=== PATIENT | male | born 1945 | race Caucasian/White ===

== ENCOUNTER 2020-10-08 22:02 | Emergency (ER) | payer BC, MEDICARE ==
[~2020-10-08] VITALS: Ht 167.6 cm; Wt 84.1 kg
[~2020-10-08 22:02] MED LIST: ACET-2119 PO; ASPI-100 PO; METO200T49 PO
[2020-10-08 22:47] LABS: BASOPHILS # (AUTO) 0.1 X10'3 (0-0.2); BASOPHILS % (AUTO) 1.6 % (0-1); EOSINOPHILS # (AUTO) 0.1 X10'3 (0-0.9); EOSINOPHILS % (AUTO) 1.8 % (0-6); HEMATOCRIT 28.5 % (42.0-52.0); HEMOGLOBIN 9.8 g/dl (14.0-17.9); LYMPHOCYTES # (AUTO) 1.5 X10'3 (1.1-4.8); LYMPHOCYTES % (AUTO) 25.6 % (21-51); MEAN CORPUSCULAR HGB CONC 34.4 g/dL (33.0-36.5); MEAN CORPUSCULAR VOLUME 104.6 FL (78-98); MEAN PLATELET VOLUME 10.1 FL (7.4-10.4); MONOCYTES # (AUTO) 0.7 X10'3 (0-0.9); MONOCYTES % (AUTO) 11.4 % (2-12); NEUTROPHILS # (AUTO) 3.4 X10'3 (1.8-7.7); NEUTROPHILS % (AUTO) 59.6 % (42-75); PLATELET COUNT 284 X10'3 (140-440); RED BLOOD COUNT 2.72 X10'6 (4.70-6.10); RED CELL DISTRIBUTION WIDTH 17.7 % (11.5-14.5); WHITE BLOOD COUNT 5.7 X10'3 (4.5-11.0)
[2020-10-08 23:04] LABS: ALANINE AMINOTRANSFERASE 17 U/L (12-78); ALBUMIN 4.6 G/DL (3.4-5.0); ALBUMIN/GLOBULIN RATIO 1.7 (1.1-1.5); ALKALINE PHOSPHATASE 61 IU/L (46-116); ANION GAP 11 (8-16); ASPARTATE AMINO TRANSFERASE 13 U/L (10-37); BILIRUBIN,TOTAL 0.4 MG/DL (0.1-1.0); BLOOD UREA NITROGEN 19 MG/DL (7-18); BUN/CREATININE RATIO 16.7 (5.4-32.0); CALCIUM 9.2 MG/DL (8.5-10.1); CHLORIDE 108 MMOL/L (99-107); CREATININE 1.14 MG/DL (0.60-1.10); GLUCOSE 132 MG/DL (70-104); SODIUM 145 MMOL/L (135-145); TOTAL CARBON DIOXIDE 25.9 MMOL/L (24-32); TOTAL PROTEIN 7.3 G/DL (6.4-8.2); eGFR 62 ML/MIN
[2020-10-08] MEDS ORDERED: APIX5TAB3 PO (23:47)
[2020-10-09 00:06] LABS: ANISOCYTOSIS 1+; HYPOCHROMASIA 1+; PLATELET ESTIMATE NORMAL; POLYCHROMASIA FEW
[2020-10-09 00:07] LABS: ELLIPTOCYTES FEW
[2020-10-09 00:14] VITALS: BP 110/47
== END 2020-10-09 00:15 | disposition home or self-care (01) ==
LOC: ER 22:03
DX: I48.91 Unspecified atrial fibrillation (principal); I10 Essential (primary) hypertension; Z87.891 Personal history of nicotine dependence
CPT/HCPCS: 36415; 71045; 80053; 83735; 83880; 84484; 85008; 85025; 93005; 99285

== ENCOUNTER 2021-03-02 13:42 | Emergency (ER) | payer MEDICARE, OTHER ==
[~2021-03-02] VITALS: Ht 167.6 cm; Wt 84.5 kg
[~2021-03-02 13:42] MED LIST changes: +APIX5TAB3 PO
[2021-03-02] MEDS ORDERED: diltiazem-NS 100mg/100ml 100 ML IV SCH (14:00)
[2021-03-02] MEDS ORDERED: diltiazem 5mg/ml 5ml inj. IV ONE (14:00)
--- NOTE | 2021-03-02 14:00 | NUR ---
Dr. Singh at bedside. HR 130-180
[2021-03-02] MEDS ORDERED: etomidate 2mg/ml inj. IV ONE (14:05)
[2021-03-02] MEDS ORDERED: heparin 10,000 units/1 ML INJ IV ONE (14:05)
[2021-03-02] MEDS ORDERED: fentaNYL/PF 50MCG/1 ML 2ML syringe IV ONE (14:05)
[2021-03-02] MEDS ORDERED: ondansetron/PF 4mg/2ml inj IV ONE ×2 (14:05)
[2021-03-02 14:31] LABS: ALANINE AMINOTRANSFERASE 14 U/L (12-78); ALBUMIN 4.1 G/DL (3.4-5.0); ALBUMIN/GLOBULIN RATIO 1.6 (1.1-1.5); ALKALINE PHOSPHATASE 52 IU/L (46-116); ANION GAP 11 (8-16); ASPARTATE AMINO TRANSFERASE 12 U/L (10-37); BILIRUBIN,TOTAL 0.5 MG/DL (0.1-1.0); BLOOD UREA NITROGEN 18 MG/DL (7-18); BUN/CREATININE RATIO 18.6 (5.4-32.0); CALCIUM 8.5 MG/DL (8.5-10.1); CHLORIDE 107 MMOL/L (99-107); CREATININE 0.97 MG/DL (0.60-1.10); GLUCOSE 153 MG/DL (70-104); POTASSIUM 4.2 MMOL/L (3.5-5.1); SODIUM 143 MMOL/L (135-145); TOTAL CARBON DIOXIDE 25.3 MMOL/L (24-32); TOTAL PROTEIN 6.6 G/DL (6.4-8.2); eGFR 75 ML/MIN
[2021-03-02 14:32] LABS: D-DIMER 0.51 MG/L FEU (0-0.50)
[2021-03-02 14:39] LABS: EOSINOPHILS # (AUTO) 0.1 X10'3 (0-0.9); EOSINOPHILS % (AUTO) 1.6 % (0-6); HEMATOCRIT 26.2 % (42.0-52.0); HEMOGLOBIN 8.8 g/dl (14.0-17.9); LYMPHOCYTES # (AUTO) 1.1 X10'3 (1.1-4.8); LYMPHOCYTES % (AUTO) 22.1 % (21-51); MEAN CORPUSCULAR HGB CONC 33.7 g/dL (33.0-36.5); MEAN CORPUSCULAR VOLUME 106.8 FL (78-98); MEAN PLATELET VOLUME 10.8 FL (7.4-10.4); MONOCYTES # (AUTO) 0.3 X10'3 (0-0.9); MONOCYTES % (AUTO) 7.2 % (2-12); NEUTROPHILS # (AUTO) 3.3 X10'3 (1.8-7.7); NEUTROPHILS % (AUTO) 68.1 % (42-75); PLATELET COUNT 241 X10'3 (140-440); RED BLOOD COUNT 2.45 X10'6 (4.70-6.10); WHITE BLOOD COUNT 4.8 X10'3 (4.5-11.0)
[2021-03-02] MEDS ORDERED: SOTA80TA PO (14:40)
[2021-03-02] MEDS ORDERED: APIX5TAB3 PO (14:40)
[2021-03-02] MEDS ORDERED: amiodarone 150mg/dext, iso-os 100 ML IV ONE (14:50)
[2021-03-02 14:52] LABS: ANISOCYTOSIS 2+; ELLIPTOCYTES FEW; PLATELET ESTIMATE NORMAL
[2021-03-02 14:53] LABS: LARGE PLATELETS FEW; MICROCYTOSIS 1+; POLYCHROMASIA 1+
[2021-03-02 14:54] LABS: BURR CELLS FEW; TEAR DROP CELLS FEW
[2021-03-02 16:00] VITALS: BP 105/49
== END 2021-03-02 16:01 | disposition home or self-care (01) ==
LOC: ER 13:42
DX: I48.91 Unspecified atrial fibrillation (principal); D50.0 Iron deficiency anemia secondary to blood loss (chronic); R00.2 Palpitations; Z88.5 Allergy status to narcotic agent; Z79.82 Long term (current) use of aspirin; Z79.899 Other long term (current) drug therapy
CPT/HCPCS: 36415; 71045; 80053; 83880; 84443; 84484; 85008; 85025; 85379; 92960; 93005; 94799; 96375; 99152; 99291; J1644; J2405; J3010

== ENCOUNTER 2021-04-23 11:24 | Emergency (ER) | payer OTHER ==
[~2021-04-23] VITALS: Ht 167.6 cm; Wt 81.8 kg
[~2021-04-23 11:24] MED LIST changes: +SOTA80TA PO
[2021-04-23 13:10] VITALS: BP 138/52
== END 2021-04-23 13:13 | disposition home or self-care (01) ==
LOC: ER 11:26
DX: I10 Essential (primary) hypertension (principal); R06.02 Shortness of breath; R11.0 Nausea; R07.89 Other chest pain; I48.91 Unspecified atrial fibrillation; Z86.2 Personal history of diseases of the blood and blood-forming organs and certain disorders involving the immune mechanism; Z88.5 Allergy status to narcotic agent; Z79.82 Long term (current) use of aspirin; Z79.899 Other long term (current) drug therapy
CPT/HCPCS: 93005; 99283

== ENCOUNTER 2021-11-11 03:06 | Inpatient (IN) | payer MEDICARE, BC ==
[~2021-11-11] VITALS: Ht 165.1 cm; Wt 63.9 kg
[~2021-11-11 03:06] MED LIST changes: -ACET-2119 PO; +ALBU2.5V7 NEB; +ALLO100T PO; -APIX5TAB3 PO; +APIX5TAB5 PO; -ASPI-100 PO; +HYDR-4069 PO; +LENA5CAP PO; +LEVO500T90 PO; +LOSA50TA64 PO; -METO200T49 PO; -SOTA80TA PO; +SOTA80TA73 PO
[2021-11-11] MEDS ORDERED: LORazepam 2 mg/ml vial IV ONE (03:20)
[2021-11-11 03:23] LABS: BASOPHILS # (AUTO) 0.2 X10'3 (0-0.2); BASOPHILS % (AUTO) 1.9 % (0-1); EOSINOPHILS # (AUTO) 0.5 X10'3 (0-0.9); EOSINOPHILS % (AUTO) 3.7 % (0-6); HEMATOCRIT 28.1 % (42.0-52.0); HEMOGLOBIN 9.3 g/dl (14.0-17.9); LYMPHOCYTES % (AUTO) 8.1 % (21-51); MEAN CORPUSCULAR HEMOGLOBIN 32.2 PG (27.0-31.0); MEAN CORPUSCULAR VOLUME 97.6 FL (78-98); MEAN PLATELET VOLUME 11.1 FL (7.4-10.4); MONOCYTES # (AUTO) 0.4 X10'3 (0-0.9); MONOCYTES % (AUTO) 3.5 % (2-12); NEUTROPHILS # (AUTO) 10.3 X10'3 (1.8-7.7); NEUTROPHILS % (AUTO) 82.8 % (42-75); PLATELET COUNT 112 X10'3 (140-440); RED BLOOD COUNT 2.88 X10'6 (4.70-6.10); RED CELL DISTRIBUTION WIDTH 17.1 % (11.5-14.5); WHITE BLOOD COUNT 12.5 X10'3 (4.5-11.0)
[2021-11-11 03:31] LABS: ABG BASE EXCESS -7.4 mmol/L (-2.0-2.0); ABG HCO3 18.1 mmol/L (22.0-26.0); ABG OXYGEN SATURATION 98.5 % (94-97); ABG PCO2 (T) 36.3 mmHg (35.0-48.0); ABG PO2 (T) 150.9 mmHg (75.0-100.0); ALLEN'S TEST POSITIVE; FCOHb 0.2 % (0.0-3.9); FMetHb 0.1 % (0.0-1.5); FO2Hb 98.2 % (94-97); PATIENT TEMPERATURE 37.1; TOTAL HEMOGLOBIN 9.8 G/dl (14.0-18.0)
[2021-11-11 03:37] LABS: ALANINE AMINOTRANSFERASE 109 U/L (12-78); ALBUMIN 3.5 G/DL (3.4-5.0); ALKALINE PHOSPHATASE 218 IU/L (46-116); ANION GAP 13 (8-16); ASPARTATE AMINO TRANSFERASE 143 U/L (10-37); BILIRUBIN,TOTAL 2.5 MG/DL (0.1-1.0); BLOOD UREA NITROGEN 29 MG/DL (7-18); BUN/CREATININE RATIO 21.3 (5.4-32.0); CALCIUM 8.1 MG/DL (8.5-10.1); CHLORIDE 95 MMOL/L (99-107); CREATININE 1.36 MG/DL (0.60-1.10); GLUCOSE 151 MG/DL (70-104); POTASSIUM 4.1 MMOL/L (3.5-5.1); SODIUM 128 MMOL/L (135-145); TOTAL CARBON DIOXIDE 20.5 MMOL/L (24-32); TOTAL PROTEIN 6.9 G/DL (6.4-8.2); eGFR 51 ML/MIN
[2021-11-11] MEDS ORDERED: iohexol 350MG/ML 100ml bottle IV ONE (03:48)
[2021-11-11] MEDS ORDERED: furosemide 10 MG/1 ML 10ml inj IV ONE (03:50)
[2021-11-11] MEDS ORDERED: aspirin 325mg tablet PO ONE (03:50)
[2021-11-11] MEDS ORDERED: mag hydrox/Alum hydrox/simeth 30ml oral suspension PO PRN (04:15)
[2021-11-11] MEDS ORDERED: ondansetron/PF 4mg/2ml inj IV PRN (04:15)
[2021-11-11] MEDS ORDERED: magnesium 4gm in 100ml NS 100 ML IV PRN (04:15)
[2021-11-11] MEDS ORDERED: magnesium 2GM in 50ml NS 50 ML IV PRN (04:15)
[2021-11-11] MEDS ORDERED: potassium CL 10mEq/100ml bag 100 ML IV PRN (04:15)
[2021-11-11] MEDS ORDERED: potassium Cl 20 mEq SR tablet PO PRN ×2 (04:15)
[2021-11-11] MEDS ORDERED: acetaminophen 325mg tablet PO PRN ×2 (04:15)
[2021-11-11] MEDS ORDERED: magnesium Cl slow-release 64mg tablet PO PRN (04:15)
[2021-11-11 05:00] LABS: ANISOCYTOSIS 1+; PLATELET ESTIMATE DECREASED
[2021-11-11 05:01] LABS: ELLIPTOCYTES FEW; LARGE PLATELETS FEW; POLYCHROMASIA FEW; SCHISTOCYTES FEW
[2021-11-11] MEDS: albuterol 2.5 MG/3 ML nebule NEB SCH ×3 (07:07→20:09)
--- NOTE | 2021-11-11 07:25 | NUR ---
HOSPITALIST PAGED REGARDING ELEVATED TROPONIN.
[2021-11-11] MEDS: K and/or MAG REPLACEMENT MC SCH ×2 (08:00→20:00)
[2021-11-11] MEDS: furosemide 40mg/4ml inj IV SCH ×2 (08:00→21:24)
[2021-11-11] MEDS: heparin, porcine 5000 units/ml vial SQ SCH ×2 (08:24→21:25)
[2021-11-11 15:00] VITALS: BP 111/49
[2021-11-11 18:00] VITALS: BP 111/63
[2021-11-11] MEDS: temazepam 15mg capsule PO PRN (21:53)
[2021-11-11] MEDS: benzonatate 100mg capsule PO PRN (21:53)
[2021-11-11] MEDS: guaiFENesin 200 MG/10 ML oral syrup UD cup PO PRN (22:18)
[2021-11-11 23:14] VITALS: BP 131/61
[2021-11-12] VITALS (14 sets, daily range): BP systolic 88–133; BP diastolic 37–75
[2021-11-12] MEDS: albuterol 2.5 MG/3 ML nebule NEB SCH ×4 (02:37→20:16)
[2021-11-12] MEDS: CefTRIAXone 2gm/NS 100ml IVPB 100 ML IV SCH (05:24)
[2021-11-12] MEDS: guaiFENesin 200 MG/10 ML oral syrup UD cup PO PRN ×2 (05:44→19:43)
[2021-11-12] MEDS: K and/or MAG REPLACEMENT MC SCH ×2 (08:00→19:59)
[2021-11-12] MEDS: furosemide 40mg/4ml inj IV SCH ×2 (08:01→19:44)
[2021-11-12] MEDS: heparin, porcine 5000 units/ml vial SQ SCH (08:05)
[2021-11-12 08:22] LABS: BASOPHILS # (AUTO) 0.1 X10'3 (0-0.2); HEMOGLOBIN 7.8 g/dl (14.0-17.9); MEAN CORPUSCULAR HGB CONC 33.8 g/dL (33.0-36.5); MONOCYTES # (AUTO) 0.4 X10'3 (0-0.9)
[2021-11-12 08:26] LABS: BASOPHILS % (AUTO) 1.6 % (0-1); EOSINOPHILS # (AUTO) 0.4 X10'3 (0-0.9); EOSINOPHILS % (AUTO) 13.4 % (0-6); HEMATOCRIT 22.9 % (42.0-52.0); LYMPHOCYTES # (AUTO) 0.5 X10'3 (1.1-4.8); LYMPHOCYTES % (AUTO) 14.8 % (21-51); MEAN CORPUSCULAR VOLUME 97.5 FL (78-98); MEAN PLATELET VOLUME 11.2 FL (7.4-10.4); MONOCYTES % (AUTO) 11.5 % (2-12); NEUTROPHILS # (AUTO) 1.9 X10'3 (1.8-7.7); NEUTROPHILS % (AUTO) 58.7 % (42-75); PLATELET COUNT 67 X10'3 (140-440); RED BLOOD COUNT 2.35 X10'6 (4.70-6.10); RED CELL DISTRIBUTION WIDTH 17.2 % (11.5-14.5); WHITE BLOOD COUNT 3.2 X10'3 (4.5-11.0)
[2021-11-12 08:49] LABS: ALBUMIN 3.1 G/DL (3.4-5.0); ALBUMIN/GLOBULIN RATIO 0.9 (1.1-1.5); ANION GAP 12 (8-16); ASPARTATE AMINO TRANSFERASE 59 U/L (10-37); BILIRUBIN,TOTAL 2.6 MG/DL (0.1-1.0); BLOOD UREA NITROGEN 38 MG/DL (7-18); BUN/CREATININE RATIO 21.6 (5.4-32.0); CALCIUM 8.7 MG/DL (8.5-10.1); CHLORIDE 100 MMOL/L (99-107); CREATININE 1.76 MG/DL (0.60-1.10); GLUCOSE 90 MG/DL (70-104); SODIUM 136 MMOL/L (135-145); TOTAL CARBON DIOXIDE 24.2 MMOL/L (24-32); TOTAL PROTEIN 6.4 G/DL (6.4-8.2); eGFR 38 ML/MIN
[2021-11-12 08:50] LABS: ALANINE AMINOTRANSFERASE 82 U/L (12-78); ALKALINE PHOSPHATASE 252 IU/L (46-116)
[2021-11-12 08:53] LABS: ANISOCYTOSIS 1+; PLATELET ESTIMATE DECREASED; TOTAL CELLS COUNTED 100
[2021-11-12 08:54] LABS: ELLIPTOCYTES FEW; LARGE PLATELETS FEW; POLYCHROMASIA FEW
--- NOTE | 2021-11-12 08:54 | NUR ---
PRIMARTY rn NOTIFIED PATIENT CONDITION CHANGED. pATIENT NOW IN AFIB WITH RVR RATE IN 170S. DOCTOR NEEDS TO BE NOTIFIED
--- NOTE | 2021-11-12 09:01 | NUR ---
Page Sent promotional table spacer PAGER ID: [phone] MESSAGE: [id number] CRESON. PATIENT RHYTHM CHANDED FROM SR TO AFIB WITH RVR RATE SUSTAINING 150s-170s. JOANN [id number]
--- NOTE | 2021-11-12 09:13 | NUR ---
Paged Dr Tamez regarding rhythm change. Patient converted from SR to Afib w/ RVR. Heart rate ranging 130s to 170s. Vital signs stable; BP 120/62, 99% 3L NC, 24RR, HR 174 and no pain. Patient states he had a coughing spell that started before he went into afib.
[2021-11-12] MEDS ORDERED: diltiazem 5mg/ml 5ml inj. IV ONE (09:45)
[2021-11-12] MEDS ORDERED: ondansetron/PF 4mg/2ml inj PO PRN (09:55)
[2021-11-12] MEDS: sotalol 80mg tablet PO SCH ×2 (11:26→19:43)
--- NOTE | 2021-11-12 11:30 | NUR ---
Spoke with and patient. has concerns about patient's status. Explained out plan of care. Patient's heart rate and rhythm irregular. understandable that patient needs medication to regulate heart rate and possible aid him in converting back to SR. All question and answered.
--- NOTE | 2021-11-12 11:30 | NUR ---
Paged Dr Tamez regarding anticoagulant and current status of heart rate and rhythm.
[2021-11-12] MEDS: diltiazem 30mg tablet PO SCH ×3 (12:50→20:00)
[2021-11-12] MEDS: apixaban 5mg tablet PO SCH ×2 (15:54→19:43)
[2021-11-12] MEDS ORDERED: ondansetron 4mg rapidly disintigrating tab PO PRN (16:19)
[2021-11-12] MEDS: temazepam 15mg capsule PO PRN (23:04)
[2021-11-13] VITALS (7 sets, daily range): BP systolic 92–119; BP diastolic 26–56
[2021-11-13] MEDS: albuterol 2.5 MG/3 ML nebule NEB SCH ×4 (02:00→19:32)
[2021-11-13] MEDS: diltiazem 30mg tablet PO SCH ×4 (04:26→20:26)
[2021-11-13] MEDS: CefTRIAXone 2gm/NS 100ml IVPB 100 ML IV SCH (04:26)
[2021-11-13] MEDS: guaiFENesin 200 MG/10 ML oral syrup UD cup PO PRN ×3 (04:26→20:26)
[2021-11-13] MEDS: K and/or MAG REPLACEMENT MC SCH ×2 (08:00→20:00)
[2021-11-13 08:17] LABS: EOSINOPHILS # (AUTO) 0.5 X10'3 (0-0.9); HEMOGLOBIN 7.2 g/dl (14.0-17.9); LYMPHOCYTES # (AUTO) 0.5 X10'3 (1.1-4.8)
[2021-11-13 08:19] LABS: BASOPHILS % (AUTO) 1.2 % (0-1); EOSINOPHILS % (AUTO) 14.7 % (0-6); LYMPHOCYTES % (AUTO) 15.6 % (21-51); MEAN CORPUSCULAR HEMOGLOBIN 32.7 PG (27.0-31.0); MEAN CORPUSCULAR HGB CONC 33.6 g/dL (33.0-36.5); MEAN CORPUSCULAR VOLUME 97.4 FL (78-98); MEAN PLATELET VOLUME 11.5 FL (7.4-10.4); MONOCYTES # (AUTO) 0.4 X10'3 (0-0.9); MONOCYTES % (AUTO) 13.7 % (2-12); NEUTROPHILS # (AUTO) 1.8 X10'3 (1.8-7.7); NEUTROPHILS % (AUTO) 54.8 % (42-75); PLATELET COUNT 69 X10'3 (140-440); RED BLOOD COUNT 2.19 X10'6 (4.70-6.10); RED CELL DISTRIBUTION WIDTH 17.3 % (11.5-14.5); WHITE BLOOD COUNT 3.3 X10'3 (4.5-11.0)
[2021-11-13 08:20] LABS: ALANINE AMINOTRANSFERASE 65 U/L (12-78); ALBUMIN 2.8 G/DL (3.4-5.0); ALBUMIN/GLOBULIN RATIO 0.9 (1.1-1.5); ALKALINE PHOSPHATASE 284 IU/L (46-116); ANION GAP 7 (8-16); ASPARTATE AMINO TRANSFERASE 39 U/L (10-37); BILIRUBIN,TOTAL 1.5 MG/DL (0.1-1.0); BLOOD UREA NITROGEN 46 MG/DL (7-18); BUN/CREATININE RATIO 26.9 (5.4-32.0); CALCIUM 8.5 MG/DL (8.5-10.1); CHLORIDE 102 MMOL/L (99-107); CREATININE 1.71 MG/DL (0.60-1.10); GLUCOSE 96 MG/DL (70-104); POTASSIUM 3.8 MMOL/L (3.5-5.1); SODIUM 136 MMOL/L (135-145); TOTAL CARBON DIOXIDE 26.7 MMOL/L (24-32); TOTAL PROTEIN 5.8 G/DL (6.4-8.2); eGFR 39 ML/MIN
[2021-11-13 08:31] LABS: HEMATOCRIT 21.3 % (42.0-52.0)
[2021-11-13 09:15] LABS: TOTAL CELLS COUNTED 100
[2021-11-13 09:17] LABS: ANISOCYTOSIS 1+; ELLIPTOCYTES FEW; PLATELET ESTIMATE DECREASED; TEAR DROP CELLS 1+
[2021-11-13] MEDS: sotalol 80mg tablet PO SCH ×2 (09:38→20:26)
[2021-11-13] MEDS: benzonatate 100mg capsule PO PRN ×2 (09:41→20:25)
[2021-11-13] MEDS: apixaban 5mg tablet PO SCH ×2 (09:41→20:25)
[2021-11-13] MEDS: furosemide 40mg/4ml inj IV SCH ×2 (09:42→20:26)
[2021-11-13 17:28] LABS: OCCULT BLOOD STOOL NEGATIVE (Neg)
--- NOTE | 2021-11-13 18:30 | NUR ---
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 Pt and upset because they state that the pt oncologist wants him to have a blood transfusion if his hgb drops below 8. He is currently typed and crossed matched for 1 unit for a hgb less than 7. He also states he needs to take his home medication of Revlimid. Called pharmacy and we have the medication in the pharmacy but there is no physician order currently. Paged hospitalist Ajith about hgb level and patient request, also requested order for pt home med.
[2021-11-13] MEDS: temazepam 15mg capsule PO PRN (20:26)
--- NOTE | 2021-11-13 21:00 | NUR ---
Gave report to ZEHRA Thomas, she assumed care for pt at this time.
--- NOTE | 2021-11-13 23:13 | NUR ---
RN made aware by tech of pt BP. RN stuck in another pt room. Resource RN in to check on pt. BP maintained by resource RN, pt remains asymptomatic at this time. pt received PM Cardizem and sleep aide HS. remains at bedside. call light within reach. will continue to monitor pt/BP. Addendum: 11/13/21 at 5786 by Martha Garza RN Ajith up on floor and made aware. [facility]
[2021-11-14] VITALS (8 sets, daily range): BP systolic 92–123; BP diastolic 31–40
[2021-11-14] MEDS: diltiazem 30mg tablet PO SCH ×4 (02:00→20:31)
[2021-11-14] MEDS: albuterol 2.5 MG/3 ML nebule NEB SCH ×4 (02:00→21:20)
[2021-11-14] MEDS: CefTRIAXone 2gm/NS 100ml IVPB 100 ML IV SCH (04:08)
[2021-11-14] MEDS: guaiFENesin 200 MG/10 ML oral syrup UD cup PO PRN ×3 (04:14→20:48)
--- NOTE | 2021-11-14 06:25 | NUR ---
Patient in room PCU 3008. I have received report from ZEHRA BERRY, and had the opportunity to ask questions and assume patient care.
[2021-11-14 07:28] LABS: BASOPHILS # (AUTO) 0.1 X10'3 (0-0.2); EOSINOPHILS # (AUTO) 0.9 X10'3 (0-0.9); LYMPHOCYTES # (AUTO) 0.8 X10'3 (1.1-4.8); MONOCYTES # (AUTO) 0.5 X10'3 (0-0.9); PLATELET COUNT 90 X10'3 (140-440); RED BLOOD COUNT 2.35 X10'6 (4.70-6.10); WHITE BLOOD COUNT 5.1 X10'3 (4.5-11.0)
[2021-11-14 07:32] LABS: BASOPHILS % (AUTO) 1.5 % (0-1); EOSINOPHILS % (AUTO) 18.7 % (0-6); HEMATOCRIT 23.2 % (42.0-52.0); HEMOGLOBIN 7.8 g/dl (14.0-17.9); LYMPHOCYTES % (AUTO) 16.2 % (21-51); MEAN CORPUSCULAR HGB CONC 33.5 g/dL (33.0-36.5); MEAN CORPUSCULAR VOLUME 98.5 FL (78-98); MEAN PLATELET VOLUME 11.2 FL (7.4-10.4); MONOCYTES % (AUTO) 9.7 % (2-12); NEUTROPHILS # (AUTO) 2.7 X10'3 (1.8-7.7); NEUTROPHILS % (AUTO) 53.9 % (42-75); RED CELL DISTRIBUTION WIDTH 17.3 % (11.5-14.5)
[2021-11-14 07:49] LABS: ALANINE AMINOTRANSFERASE 66 U/L (12-78); ALBUMIN/GLOBULIN RATIO 0.9 (1.1-1.5); ALKALINE PHOSPHATASE 349 IU/L (46-116); ANION GAP 8 (8-16); ASPARTATE AMINO TRANSFERASE 39 U/L (10-37); BILIRUBIN,TOTAL 1.1 MG/DL (0.1-1.0); BLOOD UREA NITROGEN 39 MG/DL (7-18); BUN/CREATININE RATIO 26.5 (5.4-32.0); CALCIUM 8.5 MG/DL (8.5-10.1); CHLORIDE 102 MMOL/L (99-107); CREATININE 1.47 MG/DL (0.60-1.10); GLUCOSE 97 MG/DL (70-104); POTASSIUM 3.5 MMOL/L (3.5-5.1); SODIUM 138 MMOL/L (135-145); TOTAL CARBON DIOXIDE 27.6 MMOL/L (24-32); TOTAL PROTEIN 6.4 G/DL (6.4-8.2); eGFR 46 ML/MIN
[2021-11-14] MEDS: K and/or MAG REPLACEMENT MC SCH ×2 (08:00→18:35)
[2021-11-14] MEDS ORDERED: REVLIMID 5 MG PO SCH (08:00)
[2021-11-14] MEDS: furosemide 40mg/4ml inj IV SCH ×2 (08:01→20:31)
[2021-11-14 08:04] LABS: % IRON SATURATION 16 % (11-46); IRON 19 UG/DL (53-167); TOTAL IRON BINDING CAPACITY 118 UG/DL (259-388)
[2021-11-14] MEDS: apixaban 5mg tablet PO SCH ×2 (08:09→20:31)
[2021-11-14 08:39] LABS: ANISOCYTOSIS 1+; LARGE PLATELETS FEW; PLATELET ESTIMATE DECREASED
[2021-11-14 08:40] LABS: ELLIPTOCYTES FEW
[2021-11-14 09:24] LABS: FERRITIN 1873 NG/ML (26-388)
[2021-11-14] MEDS ORDERED: EPOETIN ALFA-EPBX 20,000 UNIT/ML 1 ML MDV IV ONE (11:30)
--- NOTE | 2021-11-14 12:12 | NUR ---
PER DR. SEWELL: HOLD BETAPACE AND CARDIZEM FOR SYSTOLIC <100. REMOVE STITCHES ON RIGHT BAHAI, RIGHT NECK AND LEFT WRIST.
[2021-11-14] MEDS: sotalol 80mg tablet PO SCH ×2 (12:39→20:31)
--- NOTE | 2021-11-14 16:07 | NUR ---
Problems reprioritized. Patient report given, questions answered & plan of care reviewed with ZEHRA LAWS. STITCHES REMOVED FROM SIKHISM, CHIN AND WRIST, UNABLE TO REMOVE THE THREAD IN NECK, EUSEBIA NOTIFIED. PT REPORTS HE PREFERS TO TAKE REVLIMID AT NIGHT, EUSEBIA ASKED TO PHONE AND NOTIFY PHARMACY TO WHICH SHE AGREED.
[2021-11-14] MEDS: REVLIMID 5 MG PO SCH (20:33)
[2021-11-14] MEDS: benzonatate 100mg capsule PO PRN (20:49)
[2021-11-14] MEDS: temazepam 15mg capsule PO PRN (20:49)
[2021-11-15] VITALS (13 sets, daily range): BP systolic 91–131; BP diastolic 30–47
[2021-11-15] MEDS: diltiazem 30mg tablet PO SCH ×4 (01:00→19:25)
[2021-11-15] MEDS: albuterol 2.5 MG/3 ML nebule NEB SCH ×4 (02:00→20:11)
[2021-11-15] MEDS: CefTRIAXone 2gm/NS 100ml IVPB 100 ML IV SCH (04:18)
--- NOTE | 2021-11-15 06:12 | NUR ---
Patient in room PCU 3008. I have received report from Lisa SHAHID and had the opportunity to ask questions and assume patient care.
--- NOTE | 2021-11-15 06:18 | NUR ---
Care endorsed to ZEHRA Mac.
[2021-11-15 06:59] LABS: BASOPHILS # (AUTO) 0.1 X10'3 (0-0.2); EOSINOPHILS # (AUTO) 0.8 X10'3 (0-0.9); MONOCYTES # (AUTO) 0.5 X10'3 (0-0.9); NEUTROPHILS # (AUTO) 1.4 X10'3 (1.8-7.7)
[2021-11-15 07:03] LABS: BASOPHILS % (AUTO) 2.3 % (0-1); EOSINOPHILS % (AUTO) 22.9 % (0-6); LYMPHOCYTES # (AUTO) 0.8 X10'3 (1.1-4.8); LYMPHOCYTES % (AUTO) 22.7 % (21-51); MEAN CORPUSCULAR HEMOGLOBIN 32.2 PG (27.0-31.0); MEAN CORPUSCULAR HGB CONC 33.1 g/dL (33.0-36.5); MEAN CORPUSCULAR VOLUME 97.1 FL (78-98); MEAN PLATELET VOLUME 11.7 FL (7.4-10.4); MONOCYTES % (AUTO) 13.5 % (2-12); NEUTROPHILS % (AUTO) 38.6 % (42-75); PLATELET COUNT 87 X10'3 (140-440); RED BLOOD COUNT 2.14 X10'6 (4.70-6.10); WHITE BLOOD COUNT 3.7 X10'3 (4.5-11.0)
[2021-11-15 07:16] LABS: ALANINE AMINOTRANSFERASE 57 U/L (12-78); ALBUMIN 2.8 G/DL (3.4-5.0); ALBUMIN/GLOBULIN RATIO 0.9 (1.1-1.5); ALKALINE PHOSPHATASE 335 IU/L (46-116); ANION GAP 6 (8-16); ASPARTATE AMINO TRANSFERASE 30 U/L (10-37); BILIRUBIN,TOTAL 0.7 MG/DL (0.1-1.0); BLOOD UREA NITROGEN 48 MG/DL (7-18); BUN/CREATININE RATIO 31.8 (5.4-32.0); CALCIUM 8.4 MG/DL (8.5-10.1); CHLORIDE 102 MMOL/L (99-107); CREATININE 1.51 MG/DL (0.60-1.10); GLUCOSE 96 MG/DL (70-104); SODIUM 137 MMOL/L (135-145); TOTAL CARBON DIOXIDE 29.3 MMOL/L (24-32); eGFR 45 ML/MIN
[2021-11-15 07:30] LABS: HEMATOCRIT 20.8 % (42.0-52.0); HEMOGLOBIN 6.9 g/dl (14.0-17.9)
[2021-11-15] MEDS: furosemide 40mg/4ml inj IV SCH ×2 (08:00→19:24)
[2021-11-15] MEDS: sotalol 80mg tablet PO SCH ×2 (08:00→19:25)
[2021-11-15] MEDS: apixaban 5mg tablet PO SCH ×2 (08:00→19:00)
[2021-11-15] MEDS: K and/or MAG REPLACEMENT MC SCH ×2 (08:00→18:26)
[2021-11-15 08:37] LABS: ANISOCYTOSIS 1+; PLATELET ESTIMATE DECREASED; TOTAL CELLS COUNTED 100
[2021-11-15 08:38] LABS: ELLIPTOCYTES FEW
--- NOTE | 2021-11-15 10:20 | NUR ---
Initial: Pt presented with worsening SOB and admit for decompensated heart failure with acute hypoxemic respiratory failure. Pt currently on a heart healthy diet and overall eating poorly with mostly 50% PO intake, however up to average 71% PO intake at three most recent meals. Noted pt historically eats well during admits, hopeful that PO intake will continue to improve. Per EMR pt -15.5 kg though unlikely as the wt change occurred in one day and pt with -1.9 L cumulative fluid balance. At recent admit pt with a scaled wt of 80 kg taken 10/27, initial scaled wt this admit of 81.5 kg likely more accurate and results in a BMI of 29.75. LBM 11/14. Will continue to follow closely and monitor need for nutrition intervention pending further trends in PO intake. Recommendations: 1) Continue heart healthy diet 2) Monitor need for ONS 3) Bowel care PRN 4) Daily scaled weights per rx Addendum: 11/15/21 at [address] Amended: Links added.
--- NOTE | 2021-11-15 18:18 | NUR ---
Problems reprioritized. Patient report given, questions answered & plan of care reviewed with Lisa SHAHID.
[2021-11-15] MEDS: REVLIMID 5 MG PO SCH (19:25)
[2021-11-15] MEDS: guaiFENesin 200 MG/10 ML oral syrup UD cup PO PRN (19:25)
[2021-11-15] MEDS: benzonatate 100mg capsule PO PRN (19:25)
[2021-11-15 19:27] LABS: HEMOGLOBIN 9.1 g/dl (14.0-17.9); MEAN CORPUSCULAR HEMOGLOBIN 32.1 PG (27.0-31.0); MEAN PLATELET VOLUME 10.9 FL (7.4-10.4); RED BLOOD COUNT 2.83 X10'6 (4.70-6.10); WHITE BLOOD COUNT 4.6 X10'3 (4.5-11.0)
[2021-11-15 19:28] LABS: MEAN CORPUSCULAR HGB CONC 33.7 g/dL (33.0-36.5); MEAN CORPUSCULAR VOLUME 95.2 FL (78-98); PLATELET COUNT 103 X10'3 (140-440); RED CELL DISTRIBUTION WIDTH 19.1 % (11.5-14.5)
[2021-11-15] MEDS: temazepam 15mg capsule PO PRN (20:45)
[2021-11-16] MEDS: albuterol 2.5 MG/3 ML nebule NEB SCH ×3 (00:55→14:06)
[2021-11-16 01:55] VITALS: BP 88/32
[2021-11-16] MEDS: diltiazem 30mg tablet PO SCH ×3 (01:57→14:00)
[2021-11-16 02:00] VITALS: BP 94/38
[2021-11-16] MEDS: CefTRIAXone 2gm/NS 100ml IVPB 100 ML IV SCH (04:32)
[2021-11-16 06:09] LABS: BASOPHILS # (AUTO) 0.1 X10'3 (0-0.2); BASOPHILS % (AUTO) 2.3 % (0-1); EOSINOPHILS % (AUTO) 25.2 % (0-6); HEMATOCRIT 26.2 % (42.0-52.0); HEMOGLOBIN 8.8 g/dl (14.0-17.9); LYMPHOCYTES # (AUTO) 0.9 X10'3 (1.1-4.8); LYMPHOCYTES % (AUTO) 22.4 % (21-51); MEAN CORPUSCULAR HEMOGLOBIN 32.1 PG (27.0-31.0); MEAN CORPUSCULAR HGB CONC 33.5 g/dL (33.0-36.5); MEAN CORPUSCULAR VOLUME 95.8 FL (78-98); MEAN PLATELET VOLUME 12.2 FL (7.4-10.4); MONOCYTES # (AUTO) 0.5 X10'3 (0-0.9); MONOCYTES % (AUTO) 12.3 % (2-12); NEUTROPHILS # (AUTO) 1.5 X10'3 (1.8-7.7); NEUTROPHILS % (AUTO) 37.8 % (42-75); PLATELET COUNT 93 X10'3 (140-440); RED BLOOD COUNT 2.73 X10'6 (4.70-6.10); WHITE BLOOD COUNT 3.9 X10'3 (4.5-11.0)
[2021-11-16 06:10] LABS: ALANINE AMINOTRANSFERASE 47 U/L (12-78); ALBUMIN 2.8 G/DL (3.4-5.0); ALBUMIN/GLOBULIN RATIO 0.8 (1.1-1.5); ALKALINE PHOSPHATASE 350 IU/L (46-116); ANION GAP 9 (8-16); ASPARTATE AMINO TRANSFERASE 24 U/L (10-37); BLOOD UREA NITROGEN 41 MG/DL (7-18); BUN/CREATININE RATIO 33.9 (5.4-32.0); CALCIUM 8.8 MG/DL (8.5-10.1); CHLORIDE 104 MMOL/L (99-107); CREATININE 1.21 MG/DL (0.60-1.10); GLUCOSE 98 MG/DL (70-104); SODIUM 140 MMOL/L (135-145); TOTAL CARBON DIOXIDE 27.3 MMOL/L (24-32); TOTAL PROTEIN 6.3 G/DL (6.4-8.2); eGFR 58 ML/MIN
--- NOTE | 2021-11-16 06:21 | NUR ---
Problems reprioritized. Patient report given, questions answered & plan of care reviewed with ZEHRA De Los Santos
[2021-11-16 07:00] VITALS: BP 109/36
[2021-11-16] MEDS: furosemide 40mg/4ml inj IV SCH (07:54)
[2021-11-16] MEDS: sotalol 80mg tablet PO SCH (08:00)
[2021-11-16] MEDS: apixaban 5mg tablet PO SCH (08:00)
[2021-11-16] MEDS: K and/or MAG REPLACEMENT MC SCH (08:00)
[2021-11-16 08:43] LABS: ANISOCYTOSIS 2+; LARGE PLATELETS FEW; PLATELET ESTIMATE DECREASED; TOTAL CELLS COUNTED 100
[2021-11-16 08:44] LABS: ELLIPTOCYTES FEW; TEAR DROP CELLS FEW
[2021-11-16] MEDS ORDERED: GUAI100L97 PO (09:11)
[2021-11-16] MEDS ORDERED: AZIT500T9 PO (09:11)
[2021-11-16] MEDS ORDERED: ALBU2.5V7 NEB (09:11)
[2021-11-16] MEDS ORDERED: BENZ-69 PO (09:11)
[2021-11-16] MEDS ORDERED: LOSA50TA64 PO (09:14)
[2021-11-16] MEDS ORDERED: FURO-150 PO (09:14)
[2021-11-16 11:00] VITALS: BP 103/39
--- NOTE | 2021-11-16 11:22 | NUR ---
O2 Sat at rest on room air:_92__% If below 89%: Recovery O2 Sat at rest on _LPM:__%:__% via_(mask/nasal cannula, etc..) No further documentation is necessary. If O2 Sat did not drop below 89% on room air,ambulate patient on room air. O2 Sat while ambulating on room air:___88% Recovery O2 Sat while ambulating on __2 LPM:_94% No further documentation is necessary. If patient does not drop below 89% while ambulating, he/she does not qualify for home O2.
[2021-11-16 15:00] VITALS: BP 118/47
[2021-11-16] MEDS: guaiFENesin 200 MG/10 ML oral syrup UD cup PO PRN (15:18)
[2021-11-22] MEDS ORDERED: APIX5TAB3 PO (18:29)
[2021-11-25] MEDS ORDERED: COR3.125T PO (08:47)
[2021-11-25] MEDS ORDERED: AMIO200T67 PO (08:47)
[2021-11-25] MEDS ORDERED: FURO20TA4 PO (08:47)
== END 2021-11-16 17:39 | DRG 189 ==
LOC: ER 03:07 → ED HOLD 04:20 → EDBEDREQ 12:30 → PCU 3S 14:30
PROVIDERS: ADMIT Internal Medicine; ATTEND Internal Medicine
PROC: 5A09357 Assistance with Respiratory Ventilation, Less than 24 Consecutive Hours, Continuous Positive Airway Pressure (ICD-10-PCS; principal; 2021-11-11)
PROC: B32T1ZZ Computerized Tomography (CT Scan) of Left Pulmonary Artery using Low Osmolar Contrast (ICD-10-PCS; 2021-11-11)
PROC: B3201ZZ Computerized Tomography (CT Scan) of Thoracic Aorta using Low Osmolar Contrast (ICD-10-PCS; 2021-11-11)
PROC: B32S1ZZ Computerized Tomography (CT Scan) of Right Pulmonary Artery using Low Osmolar Contrast (ICD-10-PCS; 2021-11-11)
PROC: 30233N1 Transfusion of Nonautologous Red Blood Cells into Peripheral Vein, Percutaneous Approach (ICD-10-PCS; 2021-11-15)
DX: J96.21 Acute and chronic respiratory failure with hypoxia (principal); I50.43 Acute on chronic combined systolic (congestive) and diastolic (congestive) heart failure; I21.A1 Myocardial infarction type 2; N17.9 Acute kidney failure, unspecified; I13.0 Hypertensive heart and chronic kidney disease with heart failure and stage 1 through stage 4 chronic kidney disease, or unspecified chronic kidney disease; C95.90 Leukemia, unspecified not having achieved remission; E87.1 Hypo-osmolality and hyponatremia; J44.0 Chronic obstructive pulmonary disease with (acute) lower respiratory infection; J44.1 Chronic obstructive pulmonary disease with (acute) exacerbation; D61.818 Other pancytopenia; J20.9 Acute bronchitis, unspecified; Z20.822 Contact with and (suspected) exposure to COVID-19; R74.01 Elevation of levels of liver transaminase levels; D46.9 Myelodysplastic syndrome, unspecified; M1A.9XX0 Chronic gout, unspecified, without tophus (tophi); R79.89 Other specified abnormal findings of blood chemistry; E88.09 Other disorders of plasma-protein metabolism, not elsewhere classified; N18.30 Chronic kidney disease, stage 3 unspecified; I48.0 Paroxysmal atrial fibrillation; I25.10 Atherosclerotic heart disease of native coronary artery without angina pectoris; I35.0 Nonrheumatic aortic (valve) stenosis; Z79.01 Long term (current) use of anticoagulants; Z87.891 Personal history of nicotine dependence; Z88.5 Allergy status to narcotic agent; Z80.9 Family history of malignant neoplasm, unspecified; Z79.899 Other long term (current) drug therapy; I95.9 Hypotension, unspecified
CPT/HCPCS: 36415; 36430; 36600; 71045; 71275; 80053; 82272; 82607; 82728; 82803; 83540; 83550; 83605; 83880; 84145; 84484; 85007; 85008; 85018; 85025; 85027; 86885; 86900; 86901; 86920; 87040; 87081; 87635; 93005; 93308; 94640; 94660; 94760; 96374; 97110; 97116; 97161; 99291; C9803; G0378; J0696; J1644; J1940; J2060; J3490; P9016; Q4081; Q9967

== ENCOUNTER 2021-12-15 05:30 | Inpatient (IN) | payer MEDICARE, BC ==
[2021-12-08 14:40] LABS: BASOPHILS # (AUTO) 0.2 X10'3 (0-0.2); EOSINOPHILS # (AUTO) 0.6 X10'3 (0-0.9); LYMPHOCYTES # (AUTO) 1.3 X10'3 (1.1-4.8); MEAN CORPUSCULAR HGB CONC 34.1 g/dL (33.0-36.5); MONOCYTES # (AUTO) 0.6 X10'3 (0-0.9); PRE OP HEMATOCRIT 26.2 % (42.0-52.0)
[2021-12-08 14:41] LABS: PRE OP INR 1.2 INR; PRE OP PROTIME 11.9 SECONDS (9.0-12.0)
[2021-12-08 14:42] LABS: BASOPHILS % (AUTO) 3.4 % (0-1); EOSINOPHILS % (AUTO) 10.3 % (0-6); LYMPHOCYTES % (AUTO) 22.2 % (21-51); MEAN CORPUSCULAR VOLUME 94.1 FL (78-98); MEAN PLATELET VOLUME 11.4 FL (7.4-10.4); MONOCYTES % (AUTO) 9.9 % (2-12); NEUTROPHILS # (AUTO) 3.2 X10'3 (1.8-7.7); NEUTROPHILS % (AUTO) 54.2 % (42-75); PRE OP PLATELET COUNT 148 X10'3 (140-440); RED BLOOD COUNT 2.79 X10'6 (4.70-6.10); RED CELL DISTRIBUTION WIDTH 20.5 % (11.5-14.5)
[2021-12-08 14:43] LABS: ALBUMIN 4.1 G/DL (3.4-5.0); ALBUMIN/GLOBULIN RATIO 1.3 (1.1-1.5); ALKALINE PHOSPHATASE 95 IU/L (46-116); BLOOD UREA NITROGEN 37 MG/DL (7-18); BUN/CREATININE RATIO 23.1 (5.4-32.0); CALCIUM 8.9 MG/DL (8.5-10.1); CHLORIDE 100 MMOL/L (99-107); PRE OP ALT 9 U/L (30-65); PRE OP ANION GAP 10 (8-16); PRE OP AST 12 U/L (10-37); PRE OP BILIRUB, TOTAL 0.8 MG/DL (0.0-1.0); PRE OP GLUCOSE 161 MG/DL (70-104); PRE OP POTASSIUM 3.7 MMOL/L (3.4-5.1); PRE OP SODIUM 139 MMOL/L (135-145); TOTAL CARBON DIOXIDE 29.4 MMOL/L (24-32); TOTAL PROTEIN 7.2 G/DL (6.4-8.2); eGFR 42 ML/MIN
[2021-12-08 14:58] LABS: PRE OP HEMOGLOBIN 8.9 g/dL (14.0-17.9)
[2021-12-08 15:14] LABS: LARGE PLATELETS FEW; PLATELET ESTIMATE NORMAL
[2021-12-08 15:15] LABS: ANISOCYTOSIS 3+; ELLIPTOCYTES FEW
[2021-12-08 15:45] LABS: CLARITY,URINE CLEAR (Clear); COLOR,URINE YELLOW (Yellow); GLUCOSE, URINE NEGATIVE (Neg); KETONES,URINE NEGATIVE (Neg); LEUKOCYTE ESTERASE ,URINE NEGATIVE (Neg); NITRITES, URINE NEGATIVE (Neg); OCCULT BLOOD,URINE NEGATIVE (Neg); PH,URINE 5.5 (4.8-8.0); PROTEIN,URINE NEGATIVE (Neg); UROBILINOGEN,URINE 0.2 E.U/dL (0.2-1.0)
[2021-12-08 15:50] LABS: UA COLLECTION TYPE CLN CATCH MIDSTREAM
[~2021-12-15] VITALS: Ht 167.6 cm; Wt 73.1 kg
[2021-12-15] VITALS (9 sets, daily range): BP systolic 134–170; BP diastolic 44–67
[~2021-12-15 05:30] MED LIST changes: -ALBU2.5V7 NEB; -ALLO100T PO; +AMIO200T27 PO; +APIX5TAB3 PO; -APIX5TAB5 PO; +CARV3.122 PO; +DOCUMENT DATE & TIME OF BETA-BLOCKER PO ONE; +FURO-150 PO; -HYDR-4069 PO; -LEVO500T90 PO; -LOSA50TA64 PO; -SOTA80TA73 PO; +aspirin 325mg tablet PO ONE; +ceFAZolin inj. 2,000 MG in dextrose 5%-water 100 ML IV ONE; +famotidine 20mg tablet PO ONE; +nitroPRUSSIDE (NIPRIDE) (200MCG/ML) 100ML Drip IV SCH; +ondansetron/PF 4mg/2ml inj IV PRN; +phenylephrine inj 50 MG in normal saline 250ml IV solN IV SCH; +ringers solution, lacted 1,000 ML IV SCH; +vancomycin 1,500 MG in NS 300ml IV soln IV ONE; +vancomycin/NS 1 GM in NS 250 ML IV ONE
[2021-12-15] MEDS ORDERED: LIDOcaine 1% 30ml preserv. free vial ONE (06:34)
[2021-12-15] MEDS ORDERED: heparin 1,000 UNITS/NS 500ml 1,500 ML ONE (06:34)
[2021-12-15] MEDS ORDERED: iohexol 300mg/ml 100ml inj. ONE (06:34)
[2021-12-15] MEDS ORDERED: protamine sulfate 10mg/ml inj. ONE (06:38)
[2021-12-15] MEDS ORDERED: ALLO100T PO (06:46)
[2021-12-15] MEDS ORDERED: midazolam 1 mg/ML 2ml injection ONE (07:14)
[2021-12-15] MEDS ORDERED: REMIFENTANIL (Ultiva) 1 MG VIAL IV ONE (07:15)
[2021-12-15] MEDS ORDERED: LIDOcaine 2% (20mg/ml) 5ml vial ONE (07:16)
[2021-12-15] MEDS ORDERED: propofol inj 20 ML IV ONE (07:16)
[2021-12-15] MEDS ORDERED: heparin 1,000unit/ml 10ml vial 10 ML ONE (08:33)
[2021-12-15] MEDS ORDERED: acetaminophen 325mg tablet PO PRN (08:40)
[2021-12-15] MEDS ORDERED: ondansetron/PF 4mg/2ml inj IV PRN ×2 (08:40→10:40)
[2021-12-15] MEDS ORDERED: proCHLORperazine 10 MG/2 ml inj IV PRN ×2 (08:40→10:40)
[2021-12-15] MEDS ORDERED: ALPRAZolam 0.25mg tablet PO PRN (08:40)
[2021-12-15] MEDS ORDERED: hydrALAZINE 20mg/ml inj. IV PRN (08:40)
[2021-12-15] MEDS ORDERED: pantoprazole 40mg Tablet.DR PO PRN (08:40)
[2021-12-15] MEDS ORDERED: docusate sod 100mg capsule PO PRN (08:40)
[2021-12-15] MEDS ORDERED: diphenhydrAMINE 25mg capsule PO PRN (08:40)
--- NOTE | 2021-12-15 09:03 | NUR ---
Received from OR via SURGICAL BED , accompanied by Anesthesiologist NYDIA and report given by Anesthesiolgist. PATIENT WITH 18G PIV IN LEFT UE WELL AN ART LINE. BILAT GROIN DRESSINGS ARE CDI UNDER OCCCLUSIVE DRESSING. PATIENT WITH + DPS BILATERALLY UPON PALPATION. DENIES PAIN AT THIS TIME. Addendum: 12/15/21 at 0915 by Esequiel Stevenson RN, RN Amended: Links added.
--- NOTE | 2021-12-15 09:41 | NUR ---
PUSH PULLS, AUTO DAMAGE ESTIMATOR ALL EQUAL TO BILAT UE'S AND LE'S. GROIN CHECKS BILATERALLY ARE ALL CDI CURRENTLY AND SOFT TO TOUCH. NO DRAINAGE PRESENT. + DPS BILATERALLY PRESENT ON PALPATION. Addendum: 12/15/21 at 0943 by Esequiel Stevenson RN, RN Amended: Links added.
--- NOTE | 2021-12-15 10:03 | NUR ---
PATIENT HAS MET ALL CRITERIA FOR TRANSFER TO THE PCU FLOOR. VSS. DRESSINGS INTACT. BED LOW, CALL LIGHT PRESENT AND 2 RAILS UP. RN PRESENT TO ACCEPT CARE OF PATIENT AND REPORT HAS BEEN CALLED. ALL QUESTIONS ANSWERED TO ACCEPTING ZEHRA MIRANDA. VSS. GOING CHECKS DONE BY RN WELL PUSH PULLS, FORENSIC MATERIALS ENGINEER, TONGUE MIDLINE AND SMILE SYMMETRICAL. PATIENT DENIES PAIN. + DPS BILATERALLY. CARE TURNED OVER TO ZEHRA MIRANDA. Addendum: 12/15/21 at 1019 by Esequiel Stevenson RN, RN Amended: Links added.
[2021-12-15] MEDS ORDERED: morphine 4 MG/ML inj SYRINge IV PRN (10:40)
[2021-12-15] MEDS ORDERED: meperidine/PF 25mg/ml syringe IV PRN ×3 (10:40)
[2021-12-15] MEDS ORDERED: ringers solution, lacted 1,000 ML IV SCH (10:40)
[2021-12-15] MEDS ORDERED: morphine 2 MG/ML inj. syringe IV PRN (10:40)
[2021-12-15] MEDS: ceFAZolin 1GM/D5W- ADD-VANTAGE 50 ML IV SCH ×2 (16:23→23:22)
[2021-12-15] MEDS: sod chloride 0.9% 10ml flush syringe IV SCH ×2 (16:32→23:23)
[2021-12-15] MEDS: normal saline 1000ml 1,000 ML IV SCH ×2 (18:40→18:55)
[2021-12-15] MEDS: vancomycin/NS 1 GM ADD-VANTAGE 250 ML IV SCH (19:12)
[2021-12-15] MEDS ORDERED: temazepam 15mg capsule PO PRN (22:45)
[2021-12-16 02:00] VITALS: BP 114/38
[2021-12-16] MEDS: normal saline 1000ml 1,000 ML IV SCH (03:40)
[2021-12-16 06:21] LABS: BASOPHILS # (AUTO) 0.1 X10'3 (0-0.2); BASOPHILS % (AUTO) 1.8 % (0-1); EOSINOPHILS # (AUTO) 1.3 X10'3 (0-0.9); EOSINOPHILS % (AUTO) 28.5 % (0-6); HEMATOCRIT 22.3 % (42.0-52.0); HEMOGLOBIN 7.4 g/dl (14.0-17.9); LYMPHOCYTES # (AUTO) 0.9 X10'3 (1.1-4.8); LYMPHOCYTES % (AUTO) 19.9 % (21-51); MEAN CORPUSCULAR HEMOGLOBIN 32.5 PG (27.0-31.0); MEAN CORPUSCULAR HGB CONC 33.4 g/dL (33.0-36.5); MEAN CORPUSCULAR VOLUME 97.4 FL (78-98); MEAN PLATELET VOLUME 10.6 FL (7.4-10.4); MONOCYTES # (AUTO) 0.6 X10'3 (0-0.9); MONOCYTES % (AUTO) 13.1 % (2-12); NEUTROPHILS # (AUTO) 1.6 X10'3 (1.8-7.7); NEUTROPHILS % (AUTO) 36.7 % (42-75); PLATELET COUNT 84 X10'3 (140-440); RED BLOOD COUNT 2.29 X10'6 (4.70-6.10); RED CELL DISTRIBUTION WIDTH 23.4 % (11.5-14.5); WHITE BLOOD COUNT 4.4 X10'3 (4.5-11.0)
[2021-12-16 06:38] LABS: ALANINE AMINOTRANSFERASE 9 U/L (12-78); ALBUMIN 3.2 G/DL (3.4-5.0); ALBUMIN/GLOBULIN RATIO 1.3 (1.1-1.5); ALKALINE PHOSPHATASE 61 IU/L (46-116); ANION GAP 3 (8-16); ASPARTATE AMINO TRANSFERASE 16 U/L (10-37); BILIRUBIN,TOTAL 0.7 MG/DL (0.1-1.0); BLOOD UREA NITROGEN 25 MG/DL (7-18); BUN/CREATININE RATIO 19.4 (5.4-32.0); CALCIUM 8.5 MG/DL (8.5-10.1); CHLORIDE 108 MMOL/L (99-107); CREATININE 1.29 MG/DL (0.60-1.10); GLUCOSE 94 MG/DL (70-104); MAGNESIUM 2.1 MG/DL (1.5-2.4); POTASSIUM 4.4 MMOL/L (3.5-5.1); SODIUM 140 MMOL/L (135-145); TOTAL CARBON DIOXIDE 28.7 MMOL/L (24-32); TOTAL PROTEIN 5.7 G/DL (6.4-8.2); eGFR 54 ML/MIN
[2021-12-16 07:02] LABS: ANISOCYTOSIS 3+; PLATELET ESTIMATE DECREASED; TOTAL CELLS COUNTED 100
[2021-12-16 07:03] VITALS: BP 115/46
[2021-12-16 07:03] LABS: ELLIPTOCYTES FEW; TARGET CELLS FEW
[2021-12-16] MEDS: sod chloride 0.9% 10ml flush syringe IV SCH (08:00)
[2021-12-16] MEDS: ceFAZolin 1GM/D5W- ADD-VANTAGE 50 ML IV SCH (08:21)
[2021-12-16] MEDS: vancomycin/NS 1 GM ADD-VANTAGE 250 ML IV SCH (09:24)
[2021-12-16] MEDS ORDERED: METO-539 PO (10:03)
--- NOTE | 2021-12-16 14:06 | NUR ---
Went over discharge instructions with patient and answered all questions and removed IV and telemetry box.
== END 2021-12-16 14:58 | disposition home or self-care (01) | DRG 266 ==
LOC: PAS IN 05:30 → PCU 3S 10:04
PROVIDERS: ADMIT Internal Medicine Cardiovascular Disease; ATTEND Internal Medicine Cardiovascular Disease
PROC: B41D1ZZ Fluoroscopy of Aorta and Bilateral Lower Extremity Arteries using Low Osmolar Contrast (ICD-10-PCS; 2021-12-15)
PROC: X2RF332 Replacement of Aortic Valve using Zooplastic Tissue, Rapid Deployment Technique, Percutaneous Approach, New Technology Group 2 (ICD-10-PCS; principal; 2021-12-15 07:08)
DX: I35.0 Nonrheumatic aortic (valve) stenosis (principal); I50.33 Acute on chronic diastolic (congestive) heart failure; D46.9 Myelodysplastic syndrome, unspecified; E78.5 Hyperlipidemia, unspecified; I25.10 Atherosclerotic heart disease of native coronary artery without angina pectoris; I11.0 Hypertensive heart disease with heart failure; I48.0 Paroxysmal atrial fibrillation; Z00.6 Encounter for examination for normal comparison and control in clinical research program; Z79.899 Other long term (current) drug therapy; Z88.5 Allergy status to narcotic agent; Z90.49 Acquired absence of other specified parts of digestive tract
CPT/HCPCS: 33361; 36415; 71045; 76937; 80053; 81003; 82948; 83735; 83880; 85007; 85008; 85025; 85347; 85610; 85730; 86885; 86900; 86901; 86920; 87081; 93005; 93308; A4618; A6258; A6449; C1756; C1760; C1769; C1894; G0378; J0690; J1644; J2250; J2370; J2704; J2720; J3370; J3490; J7040; J7050; J7060; J7120; Q9967; U0003; U0005

== ENCOUNTER 2021-12-22 14:41 | Emergency (ER) | payer MEDICARE, BC ==
[~2021-12-22] VITALS: Ht 167.6 cm; Wt 74.1 kg
[~2021-12-22 14:41] MED LIST changes: +ALLO100T PO; -CARV3.122 PO; -DOCUMENT DATE & TIME OF BETA-BLOCKER PO ONE; +METO-539 PO; -aspirin 325mg tablet PO ONE; -ceFAZolin inj. 2,000 MG in dextrose 5%-water 100 ML IV ONE; -famotidine 20mg tablet PO ONE; -nitroPRUSSIDE (NIPRIDE) (200MCG/ML) 100ML Drip IV SCH; -ondansetron/PF 4mg/2ml inj IV PRN; -phenylephrine inj 50 MG in normal saline 250ml IV solN IV SCH; -ringers solution, lacted 1,000 ML IV SCH; -vancomycin 1,500 MG in NS 300ml IV soln IV ONE; -vancomycin/NS 1 GM in NS 250 ML IV ONE
[2021-12-22 15:36] LABS: ALANINE AMINOTRANSFERASE 20 U/L (12-78); ALBUMIN 4.1 G/DL (3.4-5.0); ALBUMIN/GLOBULIN RATIO 1.3 (1.1-1.5); ALKALINE PHOSPHATASE 95 IU/L (46-116); ANION GAP 5 (8-16); ASPARTATE AMINO TRANSFERASE 23 U/L (10-37); BLOOD UREA NITROGEN 22 MG/DL (7-18); BUN/CREATININE RATIO 16.4 (5.4-32.0); CHLORIDE 101 MMOL/L (99-107); CREATININE 1.34 MG/DL (0.60-1.10); GLUCOSE 109 MG/DL (70-104); POTASSIUM 4.3 MMOL/L (3.5-5.1); SODIUM 134 MMOL/L (135-145); TOTAL CARBON DIOXIDE 28.1 MMOL/L (24-32); TOTAL PROTEIN 7.2 G/DL (6.4-8.2); eGFR 52 ML/MIN
[2021-12-22 15:41] LABS: BASOPHILS # (AUTO) 0.1 X10'3 (0-0.2); EOSINOPHILS # (AUTO) 0.9 X10'3 (0-0.9); HEMOGLOBIN 8.3 g/dl (14.0-17.9); LYMPHOCYTES # (AUTO) 0.6 X10'3 (1.1-4.8); MEAN CORPUSCULAR HEMOGLOBIN 32.9 PG (27.0-31.0); MEAN CORPUSCULAR HGB CONC 34.1 g/dL (33.0-36.5); MONOCYTES # (AUTO) 0.5 X10'3 (0-0.9)
[2021-12-22 15:43] LABS: BASOPHILS % (AUTO) 2.6 % (0-1); EOSINOPHILS % (AUTO) 17.8 % (0-6); HEMATOCRIT 24.2 % (42.0-52.0); LYMPHOCYTES % (AUTO) 11.6 % (21-51); MEAN CORPUSCULAR VOLUME 96.4 FL (78-98); MEAN PLATELET VOLUME 9.4 FL (7.4-10.4); MONOCYTES % (AUTO) 9.8 % (2-12); NEUTROPHILS % (AUTO) 58.2 % (42-75); PLATELET COUNT 90 X10'3 (140-440); RED BLOOD COUNT 2.51 X10'6 (4.70-6.10); RED CELL DISTRIBUTION WIDTH 23.8 % (11.5-14.5); WHITE BLOOD COUNT 5.2 X10'3 (4.5-11.0)
[2021-12-22 22:43] VITALS: BP 120/75
== END 2021-12-22 22:53 | disposition home or self-care (01) ==
LOC: ER 14:41
DX: D69.6 Thrombocytopenia, unspecified (principal); D64.9 Anemia, unspecified; I11.9 Hypertensive heart disease without heart failure; Z91.040 Latex allergy status; Z88.5 Allergy status to narcotic agent; Z79.899 Other long term (current) drug therapy
CPT/HCPCS: 36415; 71045; 80053; 83880; 84484; 85025; 86022; 93005; 99285

== ENCOUNTER 2022-01-10 10:28 | Outpatient (CLI) | payer MEDICARE, BC | END 2022-01-10 23:59 | disposition home or self-care (01) | LOC: RAD 10:28 | PROVIDERS: ATTEND Internal Medicine Cardiovascular Disease | DX: Z48.812 Encounter for surgical aftercare following surgery on the circulatory system (principal); I05.0 Rheumatic mitral stenosis; I05.8 Other rheumatic mitral valve diseases; R00.1 Bradycardia, unspecified; Z95.2 Presence of prosthetic heart valve | CPT/HCPCS: 93005; 93306 ==

== ENCOUNTER 2022-06-16 09:30 | Outpatient (CLI) | payer MEDICARE, BC ==
[~2022-06-16 09:30] MED LIST changes: -METO-539 PO
[2022-06-16 10:34] LABS: TOTAL HEMOGLOBIN 11.1 G/dl (14.0-17.9)
== END 2022-06-16 23:59 | disposition home or self-care (01) ==
LOC: RT 09:30
PROVIDERS: ATTEND Internal Medicine Cardiovascular Disease
DX: R06.02 Shortness of breath (principal); Z79.899 Other long term (current) drug therapy; Z87.891 Personal history of nicotine dependence; Z85.828 Personal history of other malignant neoplasm of skin
CPT/HCPCS: 85018; 94010; 94727; 94729; A6449

== ENCOUNTER 2024-01-24 14:23 | Emergency (ER) | payer MEDICARE, OTHER ==
[~2024-01-24] VITALS: Ht 162.6 cm; Wt 86.4 kg
[2024-01-24 14:26] VITALS: TEMP 98.6
[2024-01-24 14:44] LABS: BASOPHILS % (AUTO) 1.3 % (0-1); EOSINOPHILS # (AUTO) 0.2 X10'3 (0-0.9); EOSINOPHILS % (AUTO) 5.9 % (0-6); HEMOGLOBIN 10.3 g/dl (14.0-17.9); LYMPHOCYTES # (AUTO) 0.8 X10'3 (1.1-4.8); MEAN CORPUSCULAR HEMOGLOBIN 36.3 PG (27.0-31.0); MEAN CORPUSCULAR HGB CONC 33.3 g/dL (33.0-36.5); MEAN CORPUSCULAR VOLUME 108.8 FL (78-98); MEAN PLATELET VOLUME 11.1 FL (7.4-10.4); MONOCYTES # (AUTO) 0.3 X10'3 (0-0.9); MONOCYTES % (AUTO) 8.5 % (2-12); NEUTROPHILS # (AUTO) 2.2 X10'3 (1.8-7.7); NEUTROPHILS % (AUTO) 61.3 % (42-75); PLATELET COUNT 87 X10'3 (140-440); RED BLOOD COUNT 2.85 X10'6 (4.70-6.10); RED CELL DISTRIBUTION WIDTH 17.2 % (11.5-14.5); WHITE BLOOD COUNT 3.6 X10'3 (4.5-11.0)
[2024-01-24] MEDS: diltiazem 5mg/ml 5ml inj. IV ONE (14:45)
[2024-01-24 15:07] LABS: ALANINE AMINOTRANSFERASE 20 U/L (12-78); ALBUMIN 4.5 G/DL (3.4-5.0); ALBUMIN/GLOBULIN RATIO 1.5 (1.1-1.5); ALKALINE PHOSPHATASE 66 IU/L (46-116); ANION GAP 11 (8-16); ASPARTATE AMINO TRANSFERASE 21 U/L (10-37); BILIRUBIN,TOTAL 0.7 MG/DL (0.1-1.0); BLOOD UREA NITROGEN 11 MG/DL (7-18); BUN/CREATININE RATIO 7.4 (10.0-20.0); CALCIUM 8.8 MG/DL (8.5-10.1); CHLORIDE 105 MMOL/L (99-107); CREATININE 1.49 MG/DL (0.60-1.10); GLUCOSE 129 MG/DL (70-104); POTASSIUM 3.8 MMOL/L (3.5-5.1); SODIUM 142 MMOL/L (135-145); TOTAL CARBON DIOXIDE 25.9 MMOL/L (24-32); TOTAL PROTEIN 7.5 G/DL (6.4-8.2); eCRCL 34 ML/MIN; eGFR 45 ML/MIN
[2024-01-24 15:17] LABS: MAGNESIUM 1.7 MG/DL (1.5-2.4); PRO BRAIN NATRIURETIC PEPTIDE 763 PG/ML (0-450); THYROID STIMULATING HORMONE 3.93 ulU/ml (0.34-4.50)
[2024-01-24 16:26] VITALS: BP 119/60; PULSE 60; RESP 18; O2SAT 96
== END 2024-01-24 16:48 | disposition home or self-care (01) ==
LOC: ER 14:24
DX: I48.20 Chronic atrial fibrillation, unspecified (principal); I10 Essential (primary) hypertension; Z91.040 Latex allergy status; Z88.5 Allergy status to narcotic agent; Z79.899 Other long term (current) drug therapy
CPT/HCPCS: 36415; 71045; 80053; 83735; 83880; 84443; 84484; 85025; 93005; 99285

== ENCOUNTER 2025-03-25 05:54 | Day surgery (SDC) | payer MEDICARE, OTHER ==
[2025-03-24 12:20] LABS: MEAN PLATELET VOLUME 10.6 FL (7.4-10.4); RED CELL DISTRIBUTION WIDTH 18.2 % (11.5-14.5)
[2025-03-24 12:31] LABS: APTT 25 SECONDS (22-32); INR 1.1 INR
[2025-03-24 12:46] LABS: CREATININE 1.32 MG/DL (0.60-1.10); TOTAL CARBON DIOXIDE 27.9 MMOL/L (24-32); eGFR 52 ML/MIN
[2025-03-24 13:07] LABS: BANDS% (MANUAL) 2.0 % (0-10); EOSINOPHILS % (MANUAL) 3.0 % (0-6); LYMPHOCYTES % (MANUAL) 34.0 % (21-51); METAMYLEOCYTES% (MANUAL) 1.0 % (0-0); MONOCYTES % (MANUAL) 11.0 % (2-12); NEUTROPHILS % (MANUAL) 49.0 % (42-75)
[2025-03-24 13:08] LABS: LARGE PLATELETS FEW; PLATELET ESTIMATE DECREASED
[2025-03-25] VITALS (12 sets, daily range): BP systolic 116–143; BP diastolic 48–63; PULSE 48–56; RESP 10–20; TEMP 97.8; O2SAT 92–98
[~2025-03-25] VITALS: Ht 165.1 cm; Wt 84.6 kg
[2025-03-25] MEDS ORDERED: MULT-1249 PO (06:24)
[2025-03-25] MEDS ORDERED: VIT1CAPS9 PO (06:24)
[2025-03-25] MEDS ORDERED: AMIO100T4 PO (06:28)
[2025-03-25] MEDS ORDERED: HYDR25TA90 PO (06:36)
[2025-03-25] MEDS ORDERED: METO-395 PO (06:36)
[2025-03-25] MEDS ORDERED: LOSA50TA64 PO (06:36)
--- NOTE | 2025-03-25 06:36 | ELECTROCARDIOGRAPH REPORT ---
[facility] Test Date: 2025-03-25 Test Time: 06:34:33 Pat Name: SHRUTHI MCGARRY Department: [facility] Patient ID: [facility]-[id number] Room: Gender: M Roller Printer: FABIOLA : [id number] Requested By: RADHA VASQUEZ Order Number: [id number] Reading MD: Dr. DHARA Vasquez Measurements Intervals [place] Rate: 53 P: 40 ID: [id number] QRS: 37 QRSD: 105 T: 48 QT: 462 QTc: 434 Interpretive Statements Sinus rhythm Probable left ventricular hypertrophy Electronically Signed On 03-25-2025 20:24:[address] DHARA Vasquez Please click the below link to view image of tracing.
[2025-03-25] MEDS ORDERED: CHOL200074 PO (06:38)
[2025-03-25] MEDS ORDERED: CYAN500T71 PO (06:41)
[2025-03-25] MEDS ORDERED: ASCO500C17 PO (06:42)
[2025-03-25] MEDS ORDERED: LIDOcaine 1% (10mg/ml) 2ml vial ONE (07:25)
[2025-03-25] MEDS ORDERED: heparin 1,000unit/ml 10ml vial 10 ML ONE (07:25)
[2025-03-25] MEDS ORDERED: fentaNYL/PF 50MCG/1 ML 2ML syringe ONE (07:25)
[2025-03-25] MEDS ORDERED: iohexol 350 MG/ML 50ML vial IV ONE (07:25)
[2025-03-25] MEDS ORDERED: verapamil 2.5 mg/ml inj IV ONE (07:25)
[2025-03-25] MEDS ORDERED: midazolam 1 mg/ML 2ml injection ONE (07:25)
[2025-03-25] MEDS ORDERED: nitroGLYCERIN 500mcg/5mL D5W 5 ML IV ONE (07:26)
[2025-03-25] MEDS: sodium bicarbonate 1meq/ml syr 150 ML in dextrose 5%-water 1,000 ML IV ONE (09:55)
[2025-03-25] MEDS ORDERED: sodium bicarbonate 1meq/ml syr 150 ML in dextrose 5%-water 1,000 ML IV ONE (09:55)
--- NOTE | 2025-03-25 11:04 | CARDIOLOGY REPORT ---
DATE OF SERVICE: 03/25/2025 DICTATING PHYSICIAN: DHARA Vasquez MD CARDIAC CATHETERIZATION GENDER: Male. AGE: 79 years. HEIGHT: 175 cm. WEIGHT: 85 kg. BODY SURFACE AREA: 1.92 m2. INDICATION: The patient is an 79-year-old male with history of hypertension; hyperlipidemia; nonobstructive CAD, status post TAVR. The patient had TAVR on 12/15/2021. Lately, ____ dizziness and fatigue and found to have an apical reversible defect. The patient has also history of paroxysmal A-fib and after discussing risks, benefits, alternatives options, the patient prefers to proceed with definitive coronary angiography. Risks, benefits, and alternative options were discussed. Informed consent was obtained. The patient underwent left heart catheterization via right radial approach, 6-Setswana right radial sheath. Post-procedure access site hemostasis secured with a right radial band. The patient tolerated the procedure well with no complications. PROCEDURES DONE: * Ultrasound-guided right radial artery visualization and access. * Right radial angiogram. * Left heart catheterization. * LVG. * Coronary cineangiography. * Contrast utilization of 45 minutes. FINDINGS: HEMODYNAMICS: Aortic systolic 147, diastolic 64, mean of 93 mmHg, LV systolic 170 mmHg, LVEDP of 23 mmHg with a mean gradient of 20 mmHg across the aortic valve. Overall left ventricular systolic function is normal at 65%. The patient did have right radial arteriogram. The patient does have a 90-degree tortuosity in the elbow area of the right radial artery after bifurcation; however, we were able to negotiate that with a PT2 wire and subsequently the JR catheter. Left main coronary artery is a large-caliber vessel, arising from left aortic sinus with mild luminal irregularities. LAD is a medium-caliber vessel arising at the bifurcation of left main and courses through the anterior interventricular groove and ends by wrapping around the apex, supplying the distal one-third of the septum and the inferior wall. The LAD proximally has a 40% narrowing. Diagonal 1 is 2 mm caliber with minimal luminal irregularities. Diagonal 2 and 3 are small vessels. Circumflex artery is a medium-caliber vessel arising at the bifurcation of ____ courses through the left AV groove and is a codominant vessel. Dominant OM is 2.75 mm caliber with mild luminal irregularities. The PDA comes from the left side, is a 2 mm vessel supplying the inferior wall. RCA is a nondominant vessel arising from the right aortic sinus and it is relatively small, supplying posterolateral branches. IMPRESSION: An 79-year-old male with: 1. Left ventricular ejection fraction of 65%. 2. LVEDP of 23 mmHg. 3. There is a mean gradient of 20 mmHg across the TAVR prosthetic valve. 4. Left main: Normal. 5. Proximal mid LAD 40% narrowing. 6. Codominant circumflex with mild luminal irregularities. 7. Codominant relatively small, RCA with mild luminal irregularities. RECOMMENDATIONS: Continued aggressive coronary risk factor modification, low-fat, low-cholesterol diet, maintaining ideal body weight, keeping LDL less 70 mg, regular exercise program. DHARA Vasquez MD TID: [id number] RECEIPT: [id number] FLIP/TURNER
== END 2025-03-25 15:00 | disposition home or self-care (01) ==
LOC: SSTAY O 05:54
PROVIDERS: ATTEND Internal Medicine Cardiovascular Disease
DX: R94.39 Abnormal result of other cardiovascular function study (principal); I25.10 Atherosclerotic heart disease of native coronary artery without angina pectoris; I10 Essential (primary) hypertension; E78.5 Hyperlipidemia, unspecified; I48.0 Paroxysmal atrial fibrillation; M10.9 Gout, unspecified; Z79.01 Long term (current) use of anticoagulants; Z79.899 Other long term (current) drug therapy; Z90.49 Acquired absence of other specified parts of digestive tract; Z95.2 Presence of prosthetic heart valve; Z88.5 Allergy status to narcotic agent; Z82.49 Family history of ischemic heart disease and other diseases of the circulatory system
CPT/HCPCS: 36415; 80048; 85025; 85610; 85730; 93005; 93458; 99152; 99153; A6258; A6402; C1725; C1769; C1894; J1644; J2003; J2250; J3010; J3490; J7030; J7070; Q0163; Q9967; Z7610; 36217; 85007